=== PATIENT | male | born 1950 | race Caucasian/White ===

== ENCOUNTER 2016-07-15 06:18 | Day surgery (SDC) | payer BC ==
[~2016-07-15 06:18] MED LIST: ASPI81TA2 PO; ATOR10TA PO; MELO-156 PO; METO25TA9 PO; WARF10TA6 PO
[2016-07-15 06:50] VITALS: BP 149/84
[2016-07-15 06:55] LABS: BILIRUBIN,URINE NEGATIVE (NEG); GLUCOSE,URINE NEGATIVE (NEG); NITRITE,URINE POSITIVE (NEG); PROTEIN,URINE NEGATIVE (NEG-TRACE); UROBILINOGEN,URINE 0.2 mg/dL (0.2 mg/dL)
[2016-07-15] MEDS ORDERED: PROCHLORPERAZINE 10 MG/2 ML VIAL. IV PRN (07:00)
[2016-07-15] MEDS ORDERED: IV RINGERS,LACTATED 1000ML 1,000 ML IV SCH ×2 (07:00)
[2016-07-15] MEDS ORDERED: ONDANSETRON PF 4 MG/2 ML VIAL. IV PRN (07:00)
[2016-07-15] MEDS ORDERED: HYDROmorphone 2 MG/ML VIAL IV PRN (07:00)
[2016-07-15] MEDS ORDERED: MORPHINE SULFATE 2 MG/ML DISP.SYRIN. IV PRN (07:00)
[2016-07-15] MEDS ORDERED: LIDOCAINE 1% 1 ML SYRINGE. ID PRN (07:00)
[2016-07-15] MEDS ORDERED: fentaNYL PF VIAL 100 MCG/2 ML VIAL IV PRN ×2 (07:00)
[2016-07-15 07:08] LABS: BASO % 0 % (0-3); EOS % 4 % (0-3); HEMATOCRIT 43.2 % (39.0-53.0); HEMOGLOBIN 14.4 g/dL (13.0-17.5); LYMPH # 1.7 x10^3/uL (1.0-4.8); LYMPH % 23 % (24-48); MEAN CORPUSCULAR HEMOGLOBIN 29 pg (25-35); MEAN CORPUSCULAR HGB CONC 33 g/dL (31-37); MEAN CORPUSCULAR VOLUME 88 fL (79-100); MONO % 13 % (0-9); NEUT % 60 % (31-73); PLATELET COUNT 205 x10^3/uL (140-400); RED CELL DISTRIBUTION WIDTH 13.4 % (11.5-14.5); WHITE BLOOD COUNT 7.6 x10^3/uL (4.0-11.0)
[2016-07-15 07:12] LABS: CALCIUM 9.3 mg/dL (8.5-10.1); CREATININE 0.8 mg/dL (0.7-1.3); POTASSIUM 3.9 mmol/L (3.5-5.1)
[2016-07-15 07:13] LABS: BACTERIA,URINE MANY /HPF (0-FEW); RBC,URINE 20-40 /HPF (0-2); WBC,URINE TNTC /HPF (0-4)
[2016-07-15 07:29] LABS: INR 1.2 (0.8-1.1)
== END 2016-07-15 08:41 | disposition home or self-care (01) ==
LOC: SURG 06:18
PROVIDERS: ATTEND Urology
DX: D49.4 Neoplasm of unspecified behavior of bladder (principal); Z53.9 Procedure and treatment not carried out, unspecified reason; E78.00 Pure hypercholesterolemia, unspecified; K21.9 Gastro-esophageal reflux disease without esophagitis; I10 Essential (primary) hypertension; Z90.49 Acquired absence of other specified parts of digestive tract; Z87.39 Personal history of other diseases of the musculoskeletal system and connective tissue; Z86.14 Personal history of Methicillin resistant Staphylococcus aureus infection; Z79.01 Long term (current) use of anticoagulants
CPT/HCPCS: 36415; 80048; 81001; 85027; 85610; 85730; 87086; J1956

== ENCOUNTER 2016-07-29 06:20 | Day surgery (SDC) | payer BC ==
[~2016-07-29] VITALS: Ht 193 cm; Wt 131.5 kg
[2016-07-29 06:55] LABS: BILIRUBIN,URINE NEGATIVE (NEG); GLUCOSE,URINE NEGATIVE (NEG); NITRITE,URINE NEGATIVE (NEG); PROTEIN,URINE NEGATIVE (NEG-TRACE); UROBILINOGEN,URINE 0.2 mg/dL (0.2 mg/dL)
[2016-07-29] MEDS ORDERED: HYDROmorphone 2 MG/ML VIAL IV PRN (07:00)
[2016-07-29] MEDS ORDERED: MORPHINE SULFATE 2 MG/ML DISP.SYRIN. IV PRN (07:00)
[2016-07-29] MEDS ORDERED: LIDOCAINE 1% 1 ML SYRINGE. ID PRN (07:00)
[2016-07-29] MEDS ORDERED: PROCHLORPERAZINE 10 MG/2 ML VIAL. IV PRN (07:00)
[2016-07-29] MEDS ORDERED: IV RINGERS,LACTATED 1000ML 1,000 ML IV SCH (07:00)
[2016-07-29] MEDS ORDERED: fentaNYL PF VIAL 100 MCG/2 ML VIAL IV PRN ×2 (07:00)
[2016-07-29] MEDS ORDERED: ONDANSETRON PF 4 MG/2 ML VIAL. IV PRN (07:00)
[2016-07-29 07:17] LABS: BACTERIA,URINE 0 /HPF (0-FEW); RBC,URINE 20-40 /HPF (0-2); SQUAMOUS EPITHELIAL CELL,UR FEW /LPF
[2016-07-29 07:30] LABS: BASO % 1 % (0-3); EOS % 4 % (0-3); HEMATOCRIT 41.3 % (39.0-53.0); LYMPH # 1.6 x10^3/uL (1.0-4.8); LYMPH % 24 % (24-48); MEAN CORPUSCULAR HEMOGLOBIN 30 pg (25-35); MEAN CORPUSCULAR HGB CONC 34 g/dL (31-37); MEAN CORPUSCULAR VOLUME 89 fL (79-100); MONO % 12 % (0-9); NEUT % 59 % (31-73); PLATELET COUNT 170 x10^3/uL (140-400); RED BLOOD COUNT 4.65 x10^6/uL (4.30-5.70); RED CELL DISTRIBUTION WIDTH 13.7 % (11.5-14.5); WHITE BLOOD COUNT 6.7 x10^3/uL (4.0-11.0)
[2016-07-29 07:34] LABS: CALCIUM 9.2 mg/dL (8.5-10.1); CREATININE 0.8 mg/dL (0.7-1.3); POTASSIUM 3.9 mmol/L (3.5-5.1)
[2016-07-29 07:42] LABS: INR 1.1 (0.8-1.1); PROTHROMBIN TIME PATIENT 13.9 SEC (11.7-14.0)
[2016-07-29] MEDS ORDERED: PROPOFOL 20 ML IV ONE (08:45)
[2016-07-29] MEDS ORDERED: LIDOCAINE 2% PF Vial for OR 5 ML VIAL. ONE (08:45)
[2016-07-29] MEDS ORDERED: ONDANSETRON PF 4 MG/2 ML VIAL. ONE (08:54)
[2016-07-29] MEDS ORDERED: SEVOFLURANE 31 TO 60 MINUTES. IH ONE (08:54)
[2016-07-29] MEDS ORDERED: DEXAMETHASONE SOD PHOS 20 MG/5 ML VIAL. ONE (08:54)
--- NOTE | 2016-07-29 09:25 | PDOC ---
BRIEF OPERATIVE NOTE Date: Jul 29, 2016 Pre-Op Diagnosis Gross Hematuria Post-Op Diagnosis Small bladder tumor, bladder wall diverticulum Procedure Performed Cystoscopy bladder biopsy, fulguration bladder tumor (small) Surgeon Aj Anesthesia Type: General Blood Loss minimal Specimens Obtained bladder biopsy sent to path Findings small bladder tumor inside bladder wall diverticulum Complications none Additional Remarks home SUKH ZAYAS DO Jul 29, 2016 09:25
--- NOTE | 2016-07-29 09:26 | DISCH ---
DISCHARGE INSTRUCTIONS Condition on Discharge Condition on Discharge: Stable Activity After Discharge Activity Instructions for Disc: Resume previous activity Driving Instructions after Dis: Do not drive today Diet after Discharge Diet after Discharge: Regular Checks after Discharge DC Comment: Do not re-start Warfarin for 3 days Contacting the after DC Call your doctor for: Concerns you may have Follow-Up Follow up with: Dr Zayas will call you with results of bladder biopsy SUKH ZAYAS DO Jul 29, 2016 09:26
--- NOTE | 2016-07-29 10:00 | OP ---
DATE OF SURGERY: 07/29/2016 PREOPERATIVE DIAGNOSIS: Intermittent gross hematuria. POSTOPERATIVE DIAGNOSIS: Intermittent gross hematuria plus small bladder tumor, bladder diverticulum. PROCEDURE: Cystoscopy, bladder biopsy, fulguration of small bladder tumor. SURGEON: Sukh Zayas DO. ANESTHESIA: General. INDICATIONS AND JUDGMENT: This is a 66-year-old male with a history of intermittent gross hematuria. He does take warfarin. He underwent a renal ultrasound, which was normal. It was felt that the patient should undergo cystoscopy to evaluate his bladder. He has a history of a bladder diverticulum. DESCRIPTION OF PROCEDURE: The patient was preloaded with IV antibiotics. He was then taken to the operating room and placed on the operating room table in a supine position, given a general anesthetic and then placed in a dorsolithotomy position using Hugo stirrups since we do not have a cystoscopy table. A well-lubricated rigid 21-[place]izen [place] cystoscope was advanced into the urethra, which was normal in course and caliber. The prostate fossa was visualized. His prostate appears to be adequately resected. The scope was advanced into the bladder and the bladder was carefully examined with a 30 degree and 70 degree lens. The ureteral orifices were normal. Initially, there was no obvious bladder tumor. I then inspected the wide ____ bladder diverticulum on the left side of the bladder. The scope was introduced into the bladder diverticulum and inside the diverticulum was small bladder tumor. I biopsied this tumor and then using a Bugbee electrode fulgurated the small bladder tumor completely. No other tumors were identified. The ureteral orifices were normal. The scope was withdrawn. The patient tolerated the procedure well. The patient will be discharged home on Keflex 500 mg t.i.d. for 5 days to cover the procedure. I did not leave a Martínez catheter in place. I asked the patient not restart his warfarin for about 3 days. The patient will need follow up outpatient cystoscopy in 3-4 months. The pathology report was pending ____ that the information with the patient when it is available. SUKH ZAYAS DO DR: CANDIE/kamille JOB#: [id number] / [id number]
[2016-07-29 10:35] VITALS: BP 126/83
--- NOTE | 2016-07-31 13:27 | PATHOLOGY ---
PATHOLOGY REPORT * * * * * * * * FINAL DIAGNOSIS: Bladder biopsy: - Marked acute and chronic inflammation with increased eosinophils. COMMENT: Sections of the bladder biopsy reveal a focally polypoid segment of bladder mucosa showing marked acute and chronic inflammation with increased numbers of admixed eosinophils. There is no evidence of malignancy. REPORT ELECTRONICALLY SIGNED BY: Mason Barron M.D. DATE/TIME: 07/31/2016 13:26 * * * * * * * * GROSS PATHOLOGY: Received in formalin labeled "Khurram Hines, bladder biopsy," is a segment of gar soft tissue measuring 0.4 cm in maximum dimension. The specimen is submitted entirely in cassette A1. (CAA; 07/30/2016) INITIAL CPT CODE(S): A; 20532 Professional services performed [place] [facility] [place] [address] Technical services performed by [facility] at [address] [place] [address]. SPECIMEN(S) RECEIVED: A.Bladder biopsy CLINICAL HISTORY: Intermittent gross hematuria PATIENT: KHURRAM HINES /AGE: 305/23/1950 (Age: 66) PATIENT #: [id number] ALT CASE #: SPECIMEN COLLECTION DATE: 07/29/2016 SPECIMEN RECEIVED DATE: 07/29/2016 [facility] - [address] [place] [address] - PHONE: [phone] * * * END OF REPORT * * *
== END 2016-07-29 10:40 | disposition home or self-care (01) ==
LOC: SURG 06:20
PROVIDERS: ATTEND Urology
DX: N02.9 Recurrent and persistent hematuria with unspecified morphologic changes (principal); D49.4 Neoplasm of unspecified behavior of bladder; N32.3 Diverticulum of bladder; I25.10 Atherosclerotic heart disease of native coronary artery without angina pectoris; E78.00 Pure hypercholesterolemia, unspecified; I10 Essential (primary) hypertension; K21.9 Gastro-esophageal reflux disease without esophagitis; Z86.14 Personal history of Methicillin resistant Staphylococcus aureus infection; Z87.39 Personal history of other diseases of the musculoskeletal system and connective tissue
CPT/HCPCS: 36415; 52234; 80048; 81001; 85027; 85610; 85730; 87086; J1100; J1956; J2405; J2704; J3010; 88305